=== PATIENT | male | born 1980 | race Caucasian/White ===

== ENCOUNTER 2016-04-30 15:05 | Observation (INO) | payer OTHER ==
[~2016-04-30] VITALS: Ht 188 cm; Wt 80.0 kg
[~2016-04-30 15:05] MED LIST: ALBUAER2 INH; ALPR1TAB3 PO; AMPH20TA2 PO; CLX20 PO; FLUT0.15 NAE
--- NOTE | 2016-04-30 15:47 | DIAGNOSTIC IMAGING REPORT ---
CHEST ONE VIEW PORTABLE CLINICAL HISTORY: Overdose COMPARISON STUDY: 10/28/2015 FINDINGS: The cardiac and mediastinal contours are normal. There is no evidence of focal pulmonary consolidation. There is no evidence of failure. No pleural effusions are visualized.[ IMPRESSION: No active disease in the chest. Electronically signed by: Yinka Patel M.D. 04/30/2016 3:45 PM Dictated Date/Time: 04/30/2016 3:44 PM
[2016-04-30 15:56] LABS: BASO % 0.1 %; BASO ABS # 0.01 K/uL (0-0.2); COMPLETE YES; EOS % 2.4 %; HEMATOCRIT 43.1 % (42-52); IG% 0.1 %; LYMPH % 21.6 %; LYMPH ABS # 1.78 K/uL (1.2-3.4); MEAN CELL VOLUME 92.7 fL (80-100); MEAN CORPUSCULAR HEMOGLOBIN 32.5 pg (25-34); MEAN PLATELET VOLUME 10.7 fL (7.4-10.4); MONO % 10.1 %; NEUT % 65.7 %; PLATELET COUNT 204 K/uL (130-400); RED BLOOD COUNT 4.65 M/uL (4.7-6.1); WHITE BLOOD COUNT 8.23 K/uL (4.8-10.8)
[2016-04-30 16:04] LABS: BUN/CREATININE RATIO 13.3 (10-20); CALCIUM 9.1 mg/dl (8.5-10.1); CREATININE 1.1 mg/dl (0.60-1.40); POTASSIUM 4.1 mmol/L (3.5-5.1)
[2016-04-30 16:05] LABS: PARTIAL THROMBOPLASTIN RATIO 1.2; PROTHROMBIN TIME (PATIENT) 10.7 SECONDS (9.0-12.0)
[2016-04-30 16:15] LABS: ALB/GLOB RATIO 1.1 (0.9-2); THYROID STIMULATING HORMONE 0.154 uIu/ml (0.300-4.500)
--- NOTE | 2016-04-30 16:38 | EMERGENCY ROOM VISIT NOTE ---
History Report prepared by Edin: Mónica Bland Under the Supervision of: Dr. Jong Galindo M.D. First contact with patient: 15:07 Chief Complaint: OVERDOSE (ACCIDENTAL) Stated Complaint: POSSIBLE HERION OVERDOSE History of Present Illness The patient is a 35 year old male who presents to the Emergency Room for evaluation if a possible overdose as his sister had difficulty waking him up just prior to arrival. Currently, patient denies being in any discomfort, and he has no complaints at this time. Patient states that he took 1 Lorazepam earlier today as prescribed for his history of anxiety, but he denies the use of other recreational drugs or alcohol. Patient states that he was just sleeping on his couch earlier today, but does not recall coming to the ED or why he was brought in for evaluation. He denies recent fevers, chills, chest pain, shortness of breath, abdominal pain, nausea, vomiting, diarrhea or urinary symptoms. Nurse states that she saw the patient while he was visiting his dad in the ED 2 weeks prior and was acting similarly during that time. Source of History: patient, nursing staff Onset: just prior to arrival Position: other (generalized) Symptom Intensity: no current pain Quality: other (difficult to arouse) Timing: other (current) Associated Symptoms: No SOB, No abdominal pain, No chest pain, No chills, No diarrhea, No fevers, No nausea, No urinary symptoms, No vomiting Review of Systems All systems have been listed, reviewed, and are negative other than those previously mentioned. Please see Additional Medical History Sheet. Past Medical & Surgical Medical Problems: (1) Anxiety Family History Patient reports no known family medical history. Social History Smoking Status: Never Smoker Alcohol Use: occasionally Drug Use: cocaine, heroin Marital Status: single Occupation Status: employed Current/Historical Medications Scheduled Amphetamine-Dextroamphetamine 20MG (Adderall 20MG), 20 MG PO BID Fluticasone Propionate (Nasal) (Flonase Allergy Relief), 1 SPRAY MARILYN DAILY Scheduled PRN Alprazolam (Xanax), 1 MG PO Q6H PRN for Anxiety Allergies Coded Allergies: No Known Allergies (Verified , 04/30/16) Physical Exam Vital Signs Date Time Temp Pulse Resp B/P Pulse Ox O2 Delivery O2 Flow Rate FiO2 04/30/16 16:21 69 14 123/68 99 Room Air 04/30/16 15:41 100 Room Air 04/30/16 15:10 36.3 84 17 113/69 98 Room Air Physical Exam GENERAL: Patient awake, alert, answers questions but somewhat slow. SKIN: Multiple tattoos. No erythema, pallor, cyanosis or rash HEENT: Normal head, pupils equal, reactive to light and accommodation. Scar on right TM, left is normal. Oral cavity and posterior pharynx appear normal. Neck: Without adenopathy, no neck vein distention. LUNGS: Clear to auscultation. No wheezes, no rales, no rhonchi. HEART: No murmurs. No gallops. No rubs ABDOMEN: No masses, no rebound, no hepatomegaly or splenomegaly. EXTREMITIES: No signs of trauma. No pedal or pretibial edema. No calf or thigh tenderness. NEUROLOGIC: Cranial nerves II-XII within normal limits. No gross motor sensory function deficits. Medical Decision & Procedures ER Provider Diagnostic Interpretation: X ray results are stated below per my interpretation and the radiologist's interpretation. CHEST ONE VIEW PORTABLE CLINICAL HISTORY: Overdose COMPARISON STUDY: 10/28/2015 FINDINGS: The cardiac and mediastinal contours are normal. There is no evidence of focal pulmonary consolidation. There is no evidence of failure. No pleural effusions are visualized.[ IMPRESSION: No active disease in the chest. Electronically signed by: Yinka Patel M.D. 04/30/2016 3:45 PM Dictated Date/Time: 04/30/2016 3:44 PM Laboratory Results 04/30/16 15:35 Red Blood Count 4.65, Mean Corpuscular Volume 92.7, Mean Corpuscular Hemoglobin 32.5, Mean Corpuscular Hemoglobin Concent 35.0, Mean Platelet Volume 10.7, Neutrophils (%) (Auto) 65.7, Lymphocytes (%) (Auto) 21.6, Monocytes (%) (Auto) 10.1, Eosinophils (%) (Auto) 2.4, Basophils (%) (Auto) 0.1, Neutrophils # (Auto ) 5.40, Lymphocytes # (Auto) 1.78, Monocytes # (Auto) 0.83, Eosinophils # (Auto ) 0.20, Basophils # (Auto) 0.01 04/30/16 15:35 Test 04/30/16 15:35 04/30/16 17:33 White Blood Count 8.23 K/uL (4.8-10.8) Red Blood Count 4.65 M/uL (4.7-6.1) Hemoglobin 15.1 g/dL (14.0-18.0) Hematocrit 43.1 % (42-52) Mean Corpuscular Volume 92.7 fL (80-100) Mean Corpuscular Hemoglobin 32.5 pg (25-34) Mean Corpuscular Hemoglobin Concent 35.0 g/dl (32-36) Platelet Count 204 K/uL (130-400) Mean Platelet Volume 10.7 fL (7.4-10.4) Neutrophils (%) (Auto) 65.7 % Lymphocytes (%) (Auto) 21.6 % Monocytes (%) (Auto) 10.1 % Eosinophils (%) (Auto) 2.4 % Basophils (%) (Auto) 0.1 % Neutrophils # (Auto) 5.40 K/uL (1.4-6.5) Lymphocytes # (Auto) 1.78 K/uL (1.2-3.4) Monocytes # (Auto) 0.83 K/uL (0.11-0.59) Eosinophils # (Auto) 0.20 K/uL (0-0.5) Basophils # (Auto) 0.01 K/uL (0-0.2) RDW Standard Deviation 42.8 fL (36.4-46.3) RDW Coefficient of Variation 12.8 % (11.5-14.5) Immature Granulocyte % (Auto) 0.1 % Immature Granulocyte # (Auto) 0.01 K/uL (0.00-0.02) Prothrombin Time 10.7 SECONDS (9.0-12.0) Prothromb Time International Ratio 1.0 (0.9-1.1) Activated Partial Thromboplast Time 30.7 SECONDS (21.0-31.0) Partial Thromboplastin Ratio 1.2 Anion Gap 9.0 mmol/L (3-11) Est Creatinine Clear Calc Drug Dose 109.0 ml/min Estimated GFR () 100.3 Estimated GFR (Non- 86.5 BUN/Creatinine Ratio 13.3 (10-20) Calcium Level 9.1 mg/dl (8.5-10.1) Total Bilirubin 0.7 mg/dl (0.2-1) Aspartate Amino Transf (AST/SGOT) 21 U/L (15-37) Alanine Aminotransferase (ALT/SGPT) 33 U/L (12-78) Alkaline Phosphatase 46 U/L (45-117) Total Protein 7.9 gm/dl (6.4-8.2) Albumin 4.2 gm/dl (3.4-5.0) Globulin 3.7 gm/dl (2.5-4.0) Albumin/Globulin Ratio 1.1 (0.9-2) Thyroid Stimulating Hormone (TSH) 0.154 uIu/ml (0.300-4.500) Ethyl Alcohol mg/dL < 3.0 mg/dl (0-3) Laboratory results as stated above per my review. Medications Administered Medications (Trade) Dose Ordered Sig/[place] Route Start Time Stop Time Status Last Admin Dose Admin Naloxone HCl (Narcan Inj) 0.4 mg STK-MED ONCE .ROUTE 04/30/16 16:44 04/30/16 16:45 DC 04/30/16 16:49 0.4 MG ECG Indication: toxicologic Rate (beats per minute): 68 Rhythm: normal sinus Findings: no acute ischemic change, no ectopy ED Course 1532: Past medical records reviewed. The patient was evaluated in room B10. A complete history and physical examination was performed. 1600: Psychiatric case management spoke with the patient's sister. She stated that the patient verbalized thoughts of wanting to kill himself. 1643: Upon reevaluation, patient was unarousable and his pupils were pinpoint. Narcan 0.4 mg Route was administered and patient awoke. The hospitalist will be contacted. 1710: After discussion with Dr. Pedraza, the patient will continue to be evaluated by the [facility] for further evaluation. Patient verbalized understanding and agreement with this treatment plan. Medical Decision Nurses notes reviewed. Medical history sheet reviewed. Differential diagnosis includes but is not limited to: drug overdose, arrhythmia, CVA, TIA, and metabolic disorder. The patient was evaluated multiple times. On his first examination he appeared rather sleepy. I reexamined him at 1700 and I could not arouse him. His pupils were pinpoint. He was given Narcan which did wake him up. According to the psych liaison nurse who spoke with the patient's sister, the patient has been despondent and was suicidal. The patient apparently has a history of drug abuse including heroin. Multiple labs, EKG and imaging were obtained. We are still awaiting results of the tox screen. His alcohol level is not elevated. The patient does not have any pulmonary pathology seen. The patient will require further observation and possibly more Narcan. I'm concerned that he has taken an overdose of heroin and possibly benzodiazepines. I'm also concerned that this may be intentional. The patient will require psychiatric evaluation while in the hospital. I discussed care with the hospitalist. Consults Time Called: 1700 Consulting Physician: Dr. Pedraza - [facility] Returned Call: 1705 Discussed the patient's case. He will continue to be evaluated by the [facility] hospitalist for further management. Impression Primary Impression: Multiple drug overdose Scribe Attestation The scribe's documentation has been prepared under my direction and personally reviewed by me in its entirety. I confirm that the note above accurately reflects all work, treatment, procedures, and medical decision making performed by me. Departure Information Dispostion Being Evaluated By Hospitalist ([facility]) Referrals No Doctor, Assigned (PCP)
[2016-04-30] MEDS ORDERED: NALOXONE HCL 0.4 MG/1 ML VIAL/CARP ONE (16:44)
[2016-04-30 17:55] LABS: URINE APPEARANCE CLEAR (CLEAR); URINE BILIRUBIN NEG (NEG); URINE COLOR YELLOW; URINE EPITHELIAL CELL AUTO 0-5 /lpf (0-5); URINE NITRITE NEG (NEG); URINE PH 5.5 (4.5-7.5); UROBILINOGEN NEG (NEG); ZZUR CULT IF INDIC CLEAN CATCH NO
[2016-04-30 17:56] LABS: MANUAL MICROSCOPIC REQUIRED? NO; REVIEW REQ? NO
[2016-04-30] MEDS ORDERED: POLYETHYLENE (MIRALAX) 17 GM PACK PO PRN (18:00)
[2016-04-30] MEDS ORDERED: ONDANSETRON INJ 2 MG/ML 2 ML VIAL IV PRN (18:00)
[2016-04-30] MEDS ORDERED: ACETAMINOPHEN 325 MG TAB PO PRN (18:00)
[2016-04-30] MEDS ORDERED: MAGNESIUM HYDROXIDE SUSP 30 ML UDC PO PRN (18:00)
[2016-04-30] MEDS ORDERED: ALUMINUM/MAGNESIUM/SIMETH (MAALOX MAX) 30 ML UDC PO PRN (18:00)
[2016-04-30 18:09] LABS: BENZODIAZEPINE, URINE POS (NEG); COCAINE,URINE NEG (NEG); PHENCYCLIDINE, URINE NEG (NEG)
[2016-04-30 20:13] VITALS: BP 118/64; PULSE 74; TEMP 36.5; O2SAT 100; Ht 188 cm; Wt 80.0 kg
--- NOTE | 2016-04-30 20:23 | History and Physical ---
History & Physical Date & Time of Service: Apr 30, 2016 at 20:03 Chief Complaint: Drug Overdose, Lethargy Primary Care Physician: No Doctor, Assigned History of Present Illness Source: patient, family (grandfather at bedside), clinic records, hospital records This is a 35 y/o male with a history of anxiety, ADD and drug abuse who presented to the ED on 04/30 with lethargy and unresponsiveness. As per nursing notes, the patient and his siblings were supposed to come to the hospital to sign paperwork. The patient's sister found him on the couch and had difficulty waking him up. He was minimally responsive, so she took him to the ED by private vehicle for a potential drug overdose. The patient does not remember coming here or why. He has a history of using cocaine years ago, as well as heroin "once or twice". He denies taking any drugs besides his prescribed medications, and he states he took his prescribed medications as directed. He denies drinking any alcohol lately. The patient's grandfather states that a similar episode occurred about 6 months ago, and the patient was taking drugs then, although the patient denies this. The grandfather also states that the patient has voiced thoughts of suicide without a specific plan to his family in recent months. The patient denies depression and suicidal thoughts/plans to me. The patient admits only to weakness and fatigue. Per the grandfather, the patient's father also had a history of drug and alcohol abuse. The patient denies fevers, chills, sweats, chest pain, palpitations, claudication, cough, wheezing, shortness of breath, nausea, vomiting, abdominal pain, dysuria, hematuria, urinary retention, paralysis, weakness, numbness and tingling. Past Medical/Surgical History Anxiety ADD H/o drug abuse Family History Celiac disease Diabetes mellitus Myocardial infarction Rheumatoid arthritis Social History Smoking Status: Current Every Day Smoker (3-4 cigarettes a day) Smokeless Tobacco Use: No Alcohol Use: none Drug Use: cocaine (h/o ), heroin (h/o ) Marital Status: single Housing status: lives with family (lives with father) Occupational Status: unemployed (recently released from [employer] 1 month ago) Multi-Drug Resistant Organisms History of MDRO: No Allergies Coded Allergies: No Known Allergies (Verified , 04/30/16) Home Medications Scheduled Amphetamine-Dextroamphetamine 20MG (Adderall 20MG), 20 MG PO BID Fluticasone Propionate (Nasal) (Flonase Allergy Relief), 1 SPRAY MARILYN DAILY Scheduled PRN Alprazolam (Xanax), 1 MG PO BID PRN for Anxiety Review of Systems Constitutional: + fatigue, + weakness, No chills, No fever, No sweats Eyes: No diplopia, No eye pain, No worsening of vision ENT: No hearing loss, No sore throat, No tinnitus Respiratory: No cough, No shortness of breath, No wheezing Cardiovascular: No chest pain, No edema, No palpitations Abdomen: No nausea, No pain, No vomiting Musculoskeletal: No calf pain, No joint pain, No muscle pain Genitourinary - Male: No dysuria, No hematuria, No urinary retention Neurologic: No numbness/tingling, No paralysis, No weakness Psychiatric: + anxiety, No depression symptoms, No substance abuse Integumentary: No color change, No itch, No rash Physical Exam Vital Signs Date Time Temp Pulse Resp B/P Pulse Ox O2 Delivery O2 Flow Rate FiO2 04/30/16 19:00 77 14 112/62 99 Room Air 04/30/16 18:09 81 14 119/69 99 Room Air 04/30/16 16:21 69 14 123/68 99 Room Air 04/30/16 15:41 100 Room Air 04/30/16 15:10 36.3 84 17 113/69 98 Room Air General Appearance: WD/WN, no apparent distress (lethargic, falls asleep every few seconds during history) Head: normocephalic, atraumatic Eyes: normal inspection, PERRL (pupils dilated), EOMI ENT: normal ENT inspection, hearing grossly normal, pharynx normal Neck: supple, no JVD, trachea midline Respiratory/Chest: lungs clear, normal breath sounds, no respiratory distress Cardiovascular: regular rate, rhythm, no gallop, no murmur Abdomen/GI: normal bowel sounds, non tender, soft Extremities/Musculoskelatal: normal inspection, no calf tenderness, no pedal edema Neurologic/Psych: normal mood/affect, oriented x 3, + pertinent finding ( lethargic/drowsy, keeps falling asleep during history/exam but is easily roused) Skin: normal color, warm/dry, no rash Diagnostics Laboratory Results Results Past 24 Hours Test 04/30/16 15:35 04/30/16 17:33 Range/Units White Blood Count 8.23 4.8-10.8 K/uL Red Blood Count 4.65 4.7-6.1 M/uL Hemoglobin 15.1 14.0-18.0 g/dL Hematocrit 43.1 42-52 % Mean Corpuscular Volume 92.7 80-100 fL Mean Corpuscular Hemoglobin 32.5 25-34 pg Mean Corpuscular Hemoglobin Concent 35.0 32-36 g/dl Platelet Count 204 130-400 K/uL Mean Platelet Volume 10.7 7.4-10.4 fL Neutrophils (%) (Auto) 65.7 % Lymphocytes (%) (Auto) 21.6 % Monocytes (%) (Auto) 10.1 % Eosinophils (%) (Auto) 2.4 % Basophils (%) (Auto) 0.1 % Neutrophils # (Auto) 5.40 1.4-6.5 K/uL Lymphocytes # (Auto) 1.78 1.2-3.4 K/uL Monocytes # (Auto) 0.83 0.11-0.59 K/uL Eosinophils # (Auto) 0.20 0-0.5 K/uL Basophils # (Auto) 0.01 0-0.2 K/uL RDW Standard Deviation 42.8 36.4-46.3 fL RDW Coefficient of Variation 12.8 11.5-14.5 % Immature Granulocyte % (Auto) 0.1 % Immature Granulocyte # (Auto) 0.01 0.00-0.02 K/uL Prothrombin Time 10.7 9.0-12.0 SECONDS Prothromb Time International Ratio 1.0 0.9-1.1 Activated Partial Thromboplast Time 30.7 21.0-31.0 SECONDS Partial Thromboplastin Ratio 1.2 Sodium Level 140 136-145 mmol/L Potassium Level 4.1 3.5-5.1 mmol/L Chloride Level 103 98-107 mmol/L Carbon Dioxide Level 28 21-32 mmol/L Anion Gap 9.0 3-11 mmol/L Blood Urea Nitrogen 15 7-18 mg/dl Creatinine 1.10 0.60-1.40 mg/dl Est Creatinine Clear Calc Drug Dose 109.0 ml/min Estimated GFR () 100.3 Estimated GFR (Non- 86.5 BUN/Creatinine Ratio 13.3 10-20 Random Glucose 81 70-99 mg/dl Calcium Level 9.1 8.5-10.1 mg/dl Total Bilirubin 0.7 0.2-1 mg/dl Aspartate Amino Transf (AST/SGOT) 21 15-37 U/L Alanine Aminotransferase (ALT/SGPT) 33 12-78 U/L Alkaline Phosphatase 46 45-117 U/L Total Protein 7.9 6.4-8.2 gm/dl Albumin 4.2 3.4-5.0 gm/dl Globulin 3.7 2.5-4.0 gm/dl Albumin/Globulin Ratio 1.1 0.9-2 Thyroid Stimulating Hormone (TSH) 0.154 0.300-4.500 uIu/ml Ethyl Alcohol mg/dL < 3.0 0-3 mg/dl Urine Color YELLOW Urine Appearance CLEAR CLEAR Urine pH 5.5 4.5-7.5 Urine Specific [place] 1.020 1.000-1.030 Urine Protein NEG NEG Urine Glucose (UA) NEG NEG Urine Ketones TRACE NEG Urine Occult Blood NEG NEG Urine Nitrite NEG NEG Urine Bilirubin NEG NEG Urine Urobilinogen NEG NEG Urine Leukocyte Esterase NEG NEG Urine WBC (Auto) 0 0-5 /hpf Urine RBC (Auto) 0-4 0-4 /hpf Urine Hyaline Casts (Auto) 0 0-5 /lpf Urine Epithelial Cells (Auto) 0-5 0-5 /lpf Urine Bacteria (Auto) NEG NEG Urine Opiates Screen POS NEG Urine Methadone, Qualitative NEG NEG Urine Barbiturates NEG NEG Urine Phencyclidine (PCP) Level NEG NEG Ur Amphetamine/Methamphetamine POS NEG MDMA (Ecstasy) Screen POS NEG Urine Benzodiazepines Screen POS NEG Urine Cocaine Metabolite NEG NEG Urine Marijuana (THC) NEG NEG Diagnostic Radiology Reviewed the following studies and agree with interpretation as follows: Patient Name: MEIR ROUSE Unit Number: [id number] Dictated: 04/30/161543 Transcribed: 04/30/161543 ARG Printed Date/Time: [~ rep prt dt]/[~ rep prt tm] [~ rep ct labl] - [~ rep ct ivnm] [facility] [place] [place] [address] Dictated: 04/30/161543 Transcribed: 01/09/17 1544 ARG Printed Date/Time: [~ rep prt dt]/[~ rep prt tm] [~ rep ct labl] - [~ rep ct ivnm] Patient: MEIR ROUSE Address1: [address] Rec: [id number] Address2: Acct ID: [id number] [facility] Zip: [place] [address] Date: 1980 Sex: M Room/Bed: Ref Phy: No Doctor, Assigned SC: [facility] Att Phy: Report #: [id number] Helga Phy: No Doctor, Assigned Test: CXR1P Admit Phy: Respiratory Support Technician: MILKA Interpreting Phy: Yinka Patel M.D. Diagnosis: POSSIBLE HERION OVERDOSE Ordering Phy: ED, PROTOCOL Service Date: 04/30/16 Admit Date: 04/30/16 MNE: [id number] CONF: DICTATED BY: Yinka Patel M.D.]] CC: ED,PROTOCOL No Doctor, Assigned Jong Galindo M.D. Endcc: [~ rep ct add3]] CHEST ONE VIEW PORTABLE CLINICAL HISTORY: Overdose COMPARISON STUDY: 10/28/2015 FINDINGS: The cardiac and mediastinal contours are normal. There is no evidence of focal pulmonary consolidation. There is no evidence of failure. No pleural effusions are visualized.[ IMPRESSION: No active disease in the chest. Electronically signed by: Yinka Patel M.D. 04/30/2016 3:45 PM Dictated Date/Time: 04/30/2016 3:44 PM The status of this report is Signed. Draft = Not yet reviewed or approved by Radiologist. Signed = Reviewed and approved by Radiologist. <AttendingPhy></AttendingPhy> <FamilyPhy>No Doctor, Assigned</FamilyPhy> < PrimaryPhy>No Doctor, Assigned</PrimaryPhy> <UnitNumber>[id number]</UnitNumber> <VisitNumber>[id number]</VisitNumber> <PatientName>MEIR ROUSE</ PatientName> <DateOfBirth>1980</DateOfBirth> <Location>[facility]</Location> < ServiceDate>04/30/16</ServiceDate> <MNE>ESINDI</MNE> <OrderingPhy>ED, PROTOCOL</ OrderingPhy> <OrderingPhyMNE>f rep ord dr castelan</OrderingPhyMNE> <DictatingPhyMNE> f rep dict dr castelan</DictatingPhyMNE> <CCListMNE>f rep ct mne</CCListMNE> < AdmittingPhyMNE>f pt admit dr castelan</AdmittingPhyMNE> <AttendingPhyMNE>f pt attend dr castelan</AttendingPhyMNE> <ConsultingPhyMNE>f pt consult dr castelan</ConsultingPhyMNE> <FamilyPhyMNE>f pt fam dr castelan</FamilyPhyMNE> <OtherPhyMNE>f pt other dr castelan</OtherPhyMNE> < PrimaryPhyMNE>f pt prim care dr castelan</PrimaryPhyMNE> <ReferringPhyMNE>f pt referring dr casetlan</ReferringPhyMNE> EKG Reviewed EKG and agree with interpretation as follows: 68 bpm, NSR Impression Assessment and Plan 35 y/o male with a history of anxiety, ADD and drug abuse who presented to the ED on 04/30 with lethargy and unresponsiveness. Pt has h/o drug abuse and presented with similar episode about 6 months ago. Pt denies any drug use in years and states he only takes his Adderall and Xanax as directed. Denies any depression and suicidal thoughts when asked, but according to family he has voiced thoughts of suicide more than once in the last few months. Pt. lethargic and he did become more difficult to awaken while in ED. Pupils pinpoint at that time. He was given Narcan 0.4 mg which did make him more alert. CXR no acute disease. EKG in NSR. VSS and labs grossly normal. Drug overdose, possibly intentional -Admit to telemetry for observation -UDS differentiation pending. Positive for opiates, amphetamines, ecstasy, and benzos. Pt. takes Adderall and Xanax. -Psych consulted for suicidal thoughts per family -One on one sitter -NPO for now due to lethargy, may eat when more alert -Repeat EKG in am and with chest pain Anxiety -Hold Xanax 1mg PO BID prn anxiety ADD -Hold Adderall 20 mg PO BID GI prophylaxis -Maalox Max 15 mL PO q4h prn dyspepsia -Milk of magnesia 30 mL PO q6h prn constipation -Miralax 17 gm PO qd prn constipation -Zofran 4 mg IV q6h prn nausea DVT prophylaxis -Enoxaparin 40 mg SC q24h -TOMMY hose and SCDs Code Status -Level I, FULL RESUSCITATION STATUS I agree with PA assessment and plan and have personally seen and examined pt. Pt admitted for intentional OD. Sister claims pt had suicidal ideations but pt does not agree to this. Pt lethargic on exam. Narcan given in ER. VSS. Awaiting tox screen. Psychiatry consulted. Pt has hx of polysubstance abuse. Level of Care Telemetry (observation) VTE Prophylaxis VTE Risk Assessment Done? Y/N: Yes Risk Level: High Given or contraindicated: Enoxaparin (Lovenox)SQ, SCD's
[2016-04-30] MEDS ORDERED: D5NSS + 20MEQ KCL 1,000 ML IV SCH (20:30)
[2016-04-30] MEDS: ENOXAPARIN 40 MG/0.4 ML SYR SC SCH (20:43)
[2016-04-30] MEDS ORDERED: IV FLUIDS COMPLETED PRN (21:30)
[2016-05-01] VITALS: BP 110/63; PULSE 57; TEMP 36.5; O2SAT 99
[2016-05-01 04:00] VITALS: BP 109/64; PULSE 55; TEMP 36.8; O2SAT 99
[2016-05-01 05:51] LABS: MEAN CELL VOLUME 93.1 fL (80-100); MEAN CORPUSCULAR HEMOGLOBIN 32.2 pg (25-34); MEAN CORPUSCULAR HGB CONC 34.6 g/dl (32-36); MEAN PLATELET VOLUME 10.9 fL (7.4-10.4); PLATELET COUNT 196 K/uL (130-400); RED BLOOD COUNT 4.94 M/uL (4.7-6.1); WHITE BLOOD COUNT 6.27 K/uL (4.8-10.8)
[2016-05-01 06:24] LABS: BUN/CREATININE RATIO 14.4 (10-20); CALCIUM 9.4 mg/dl (8.5-10.1)
[2016-05-01] MEDS ORDERED: INFLUENZA ADMINISTRATION CHARGE ONE (08:00)
[2016-05-01] MEDS ORDERED: INFLUENZA VIRUS QUAD VACCINE 0.5 ML SYR IM. ONE (08:00)
[2016-05-01 08:31] VITALS: BP 96/73; PULSE 62; TEMP 36.6; O2SAT 99
[2016-05-01 08:49] VITALS: BP 96/73; PULSE 62; TEMP 36.6; O2SAT 99
[2016-05-01 09:10] VITALS: BP 99/53; PULSE 66; TEMP 36.4; O2SAT 96
--- NOTE | 2016-05-01 12:40 | Progress Note ---
Subjective Subjective Date of Service: May 01, 2016. Pt evaluation today including: conversation w/ patient, physical exam, chart review, review of studies, review of inpatient medication list Notes: denies suicidal ideation, no firearms at home, no ideas to hurt others or self, feels better today Problem List Medical Problems: (1) Episode of unresponsiveness Status: Acute (2) Multiple drug overdose Status: Acute Review of Systems Constitutional: No fever ENT: No hearing loss Respiratory: No cough Abdomen: No pain Musculoskeletal: No joint pain Male : No dysuria Neurologic: No memory loss Psychiatric: No depression symptoms Endo: No fatigue Physical Exam Vital Signs Vital Signs Past 24 Hours: Date Time Temp Pulse Resp B/P Pulse Ox O2 Delivery O2 Flow Rate FiO2 05/01/16 09:10 36.4 66 16 99/53 96 Room Air 05/01/16 08:49 36.6 62 16 99 05/01/16 08:31 36.6 62 16 96/73 99 Room Air 05/01/16 08:00 Room Air 05/01/16 04:00 36.8 55 18 109/64 99 Room Air 05/01/16 04:00 99 Room Air 05/01/16 00:00 36.5 57 15 110/63 99 Room Air 05/01/16 00:00 99 Room Air 04/30/16 20:13 36.5 74 14 118/64 100 Room Air 04/30/16 19:00 77 14 112/62 99 Room Air 04/30/16 18:09 81 14 119/69 99 Room Air 04/30/16 16:21 69 14 123/68 99 Room Air 04/30/16 15:41 100 Room Air 04/30/16 15:10 36.3 84 17 113/69 98 Room Air Physical Exam: General Appearance: WD/WN, no apparent distress Eyes: bilateral eyes normal inspection ENT: hearing grossly normal, pharynx normal Neck: supple, no JVD Respiratory/Chest: chest non-tender, normal breath sounds Cardiovascular: regular rate, rhythm, no gallop Abdomen: normal bowel sounds, soft Extremities: non-tender, normal inspection Neurologic/Psychiatric: alert Skin: normal color Medications Medications: Current Inpatient Medications Medications (Trade) Dose Ordered Sig/Medina Route Start Time Stop Time Status Last Admin Dose Admin Enoxaparin Sodium (Lovenox Inj) 40 mg Q24H SC 04/30/16 21:00 05/30/16 20:59 04/30/16 20:43 40 MG Acetaminophen (Tylenol Tab) 650 mg Q4H PRN PO 04/30/16 18:00 05/30/16 17:59 Al Hydrox/Mg Hydrox/Simethicone (Maalox Max Susp) 15 ml Q4H PRN PO 04/30/16 18:00 05/30/16 17:59 Magnesium Hydroxide (Milk Of Magnesia Susp) 30 ml Q12H PRN PO 04/30/16 18:00 05/30/16 17:59 Ondansetron HCl (Zofran Inj) 4 mg Q6H PRN IV 04/30/16 18:00 05/30/16 17:59 Polyethylene (Miralax Powder Packet) 17 gm DAILY PRN PO 04/30/16 18:00 05/30/16 17:59 Miscellaneous (Iv Fluids Completed) 1 ea PRN PRN N/A 04/30/16 21:30 04/30/17 21:29 Laboratory Data Labs: Last 24 Hours Test 04/30/16 15:35 04/30/16 17:33 05/01/16 05:11 White Blood Count 8.23 K/uL 6.27 K/uL Red Blood Count 4.65 M/uL 4.94 M/uL Hemoglobin 15.1 g/dL 15.9 g/dL Hematocrit 43.1 % 46.0 % Mean Corpuscular Volume 92.7 fL 93.1 fL Mean Corpuscular Hemoglobin 32.5 pg 32.2 pg Mean Corpuscular Hemoglobin Concent 35.0 g/dl 34.6 g/dl Platelet Count 204 K/uL 196 K/uL Mean Platelet Volume 10.7 fL 10.9 fL Neutrophils (%) (Auto) 65.7 % Lymphocytes (%) (Auto) 21.6 % Monocytes (%) (Auto) 10.1 % Eosinophils (%) (Auto) 2.4 % Basophils (%) (Auto) 0.1 % Neutrophils # (Auto) 5.40 K/uL Lymphocytes # (Auto) 1.78 K/uL Monocytes # (Auto) 0.83 K/uL Eosinophils # (Auto) 0.20 K/uL Basophils # (Auto) 0.01 K/uL RDW Standard Deviation 42.8 fL 43.7 fL RDW Coefficient of Variation 12.8 % 12.9 % Immature Granulocyte % (Auto) 0.1 % Immature Granulocyte # (Auto) 0.01 K/uL Prothrombin Time 10.7 SECONDS Prothromb Time International Ratio 1.0 Activated Partial Thromboplast Time 30.7 SECONDS Partial Thromboplastin Ratio 1.2 Sodium Level 140 mmol/L 140 mmol/L Potassium Level 4.1 mmol/L 4.0 mmol/L Chloride Level 103 mmol/L 103 mmol/L Carbon Dioxide Level 28 mmol/L 29 mmol/L Anion Gap 9.0 mmol/L 8.0 mmol/L Blood Urea Nitrogen 15 mg/dl 14 mg/dl Creatinine 1.10 mg/dl 1.00 mg/dl Est Creatinine Clear Calc Drug Dose 109.0 ml/min 116.7 ml/min Estimated GFR () 100.3 112.5 Estimated GFR (Non- 86.5 97.1 BUN/Creatinine Ratio 13.3 14.4 Random Glucose 81 mg/dl 79 mg/dl Calcium Level 9.1 mg/dl 9.4 mg/dl Total Bilirubin 0.7 mg/dl Aspartate Amino Transf (AST/SGOT) 21 U/L Alanine Aminotransferase (ALT/SGPT) 33 U/L Alkaline Phosphatase 46 U/L Total Protein 7.9 gm/dl Albumin 4.2 gm/dl Globulin 3.7 gm/dl Albumin/Globulin Ratio 1.1 Thyroid Stimulating Hormone (TSH) 0.154 uIu/ml Ethyl Alcohol mg/dL < 3.0 mg/dl Urine Color YELLOW Urine Appearance CLEAR Urine pH 5.5 Urine Specific Advance 1.020 Urine Protein NEG Urine Glucose (UA) NEG Urine Ketones TRACE Urine Occult Blood NEG Urine Nitrite NEG Urine Bilirubin NEG Urine Urobilinogen NEG Urine Leukocyte Esterase NEG Urine WBC (Auto) 0 /hpf Urine RBC (Auto) 0-4 /hpf Urine Hyaline Casts (Auto) 0 /lpf Urine Epithelial Cells (Auto) 0-5 /lpf Urine Bacteria (Auto) NEG Urine Opiates Screen POS Urine Methadone, Qualitative NEG Urine Barbiturates NEG Urine Phencyclidine (PCP) Level NEG Ur Amphetamine/Methamphetamine POS MDMA (Ecstasy) Screen POS Urine Benzodiazepines Screen POS Urine Cocaine Metabolite NEG Urine Marijuana (THC) NEG Assessment and Plan 35 y/o male with a history of anxiety, ADD and drug abuse who presented to the ED on 04/30 with lethargy and unresponsiveness. Pt has h/o drug abuse and presented with similar episode about 6 months ago. Pt denies any drug use in years and states he only takes his Adderall and Xanax as directed. Denies any depression and suicidal thoughts when asked, but according to family he has voiced thoughts of suicide more than once in the last few months. Pt. lethargic and he did become more difficult to awaken while in ED. Pupils pinpoint at that time. He was given Narcan 0.4 mg which did make him more alert. CXR no acute disease. EKG in NSR. VSS and labs grossly normal. Drug overdose, possibly intentional UDS. Positive for opiates, amphetamines, ecstasy, and benzos. Pt. takes Adderall and Xanax. Psych consulted for suicidal thoughts per family, they will continue to follow him, patient continues to deny suicidal thoughts, they will make further treatment recommendations One on one sitter advanced diet Previous primary care physician was Dr. Cobb and had previously prescribed Celexa. Anxiety Hold Xanax 1mg PO BID prn anxiety ADHD Hold Adderall 20 mg PO BID DVT prophylaxis Enoxaparin 40 mg SC q24h TOMMY weinberg and SCDs Code Status FULL
--- NOTE | 2016-05-01 14:27 | CONSULTATION REPORT ---
DATE OF CONSULTATION: 05/01/2016 IDENTIFYING DATA: Frank Lynn is a 35-year-old gentleman who is address is in [place], [place], who is admitted to the hospital after being found by his sister obtunded and possibly overdosed. Information gathered from the patient, the patient's brother Deonte and the electronic medical record and all considered to be reliable. CHIEF COMPLAINT: "I don't remember." HISTORY OF PRESENT ILLNESS: Frank Lynn is a 35-year-old gentleman who was brought to the Emergency Room yesterday afternoon after his sister had difficulty waking him up just prior to arrival. The patient at that time said that he had taken 1 Lorazepam pill earlier and denied the use of other recreational drugs or alcohol. When the physician went to check on the patient the second time he was obtunded with pinpoint pupils that responded to Narcan. The patient's brother Deonte, sister Britney and mother Key Wong, were interviewed last night by the liaison nurse. They have extreme concerns that are relative intentionally overdosed in a suicide attempt. They reported that he has been severely depressed because his father, who is currently in the hospital, has been placed on hospice service. The sister and brother report that he has made suicidal statements to them. They also confirmed a history of drug and alcohol abuse. At the time I see the patient today, he is lying in his bed. He is minimally cooperative with the interview. He essentially says that he has mild depression and anxiety regarding his father's declining health, but denies that he is suicidal nor that he made a suicide attempt. He does not remember what transpired right before the hospitalization, with his last memory doing methamphetamines with 2 of his friends. He also admits to taking some opiate pills of an unspecified kind, but denies that he injected any heroin. He indicates that he has not slept for three nights prior to admission but then says he has only done methamphetamines once and that was the day of admission. He indicates that he is in treatment with his PCP, possibly Dr. Solitario, who provides Xanax and Adderall. He reports that he has occasional panic attacks some of which occur when he is not using stimulant medications. I had a phone conversation with his brother Deonte at phone number [phone]. Brother Deonte was very concerned that the patient will deny all symptoms. Deonte states that he has heard the patient specifically make suicidal statements about wanting to shoot himself, about not being able to handle their father's impending . Deonte confirms that the patient has a history of mental illness dating back many years. He has a history of a suicide attempt at least twice in the past, the last one in approximately 2011 when he was living in [place] with his brother Deonte. Apparently Deonte went to work and came home to find that the patient had cut his wrist and was bleeding out on the garage floor. The patient refused to go to the hospital at that time and so came to no medical or psychiatric attention. Deonte reports that his brother has long been unstable emotionally and has also long struggled with substance abuse. Deonte reports that his brother is done bath salts, heroin, marijuana and binge drinks on alcohol. Brother Deonte also reports that the patient is not allowed to return to his father's home where he had been living since he was discharged from skilled nursing in February. Apparently, the patient had been having parties or having disruptive behaviors and the landlord there will not allow him to return. CURRENT MEDICATIONS: Med history as reported by the reconciliation list. 1. Xanax 1 mg b.i.d. p.r.n. anxiety. 2. Adderall 20 mg p.o. b.i.d. 3. Flonase nasal spray 1 spray each nostril daily. PAST PSYCHIATRIC HISTORY: The patient denies that he currently sees any mental health professionals or that he has ever been hospitalized. He denies attempts but brother confirms he has made at least 2. PRIOR MEDICATIONS: Include 1. Celexa -- from Dr. Cobb. ACCESS TO GUNS: Denies. ALLERGIES: NKDA. PAST MEDICAL HISTORY: 1. Denies for personal history of obesity, diabetes, dyslipidemia, hypertension, or cardiovascular disease. 2. History of a head injury years ago but denies history for seizures. 3. Tobacco use/disorder -- smokes one-half pack cigarettes daily. FAMILY HISTORY: Positive for depression in brother and father. Alcoholism in father and brother. He denies family history for suicide. SUBSTANCE ABUSE HISTORY: The patient has not been honest about his use, although ultimately says that he was abusing methamphetamines prior to admission. He admits he will drink 4-5 drinks on a weekend. He also has abused opiates, marijuana and claims that the benzodiazepines are by prescription. He apparently has been in skilled nursing multiple times for drugs and theft, having most recently been released in February this year. According to the [facility] monitoring site which was queried, the patient has received prescriptions for Adderall from multiple providers in the [place] and [facility]. He received 3 prescriptions in February totaling 180 pills between 02/21/2016 and 03/09/2016. There are no prescriptions on the [facility] website for benzodiazepines or any from Dr. Solitario. PERSONAL HISTORY: The patient grew up locally. He is a high school graduate. He is currently unemployed and said that his family has been helping him financially. He denies that he is currently in a relationship, but does have children, ages 9 and 11, who live with their grandmother. He does endorse being a spiritual individual. As I said, his legal charges are extensive and he has spent as many as 4 years in skilled nursing with last having been discharged in February 2016. He previously denied any psychological trauma history. MENTAL STATUS EXAMINATION: This is a 35-year-old gentleman with short dark hair, lying on his left hand side in his second floor bed. He is lying with his eyes closed when I enter, but opens his eyes to verbal. He is minimally cooperative. He is minimizing all symptoms. Eye contact is minimal, but appropriate. Motor behavior is significant for restless, shaking of his legs. Speech is of normal rate, volume, and tone. Affect is flat. Mood is "a little depressed and anxious." Thought process is for the most part organized and goal directed. He denies thought disorder in the form of hallucinations or delusions. He denies thoughts, plans, or intent to harm himself or anybody else. Today, he is oriented, although thought that it was and not Saturday. His fund of knowledge appears to be intact. His intelligence is estimated to be average. His insight and judgment are impaired. VITAL SIGNS: Temperature 36.4, pulse 66, respirations 16, blood pressure 99/53, pulse ox 96% on room air. LABORATORIES: 1. CBC -- notable for MPV elevated at 10.9. 2. Chem profile -- within normal limits. 3. TSH -- low at 0.154. 4. Toxicology -- positive for opiates, amphetamines, methamphetamines, MDMA, benzodiazepines. 5. Urinalysis -- no evidence of infection. 6. Coag studies -- within normal limits. IMAGIN. Chest x-ray -- no active disease. REVIEW OF SYSTEMS: Positive for complaints of fatigue, and a little depression and anxiety. PHYSICAL EXAMINATION: As per Dr. Shane. IMPRESSION: A 35-year-old gentleman admitted to the hospital with concerns for intentional toxic ingestion in a suicide attempt. The patient is denying that he is suicidal or that he has made a suicide attempt, yet says he cannot remember anything after abusing methamphetamines with friends. He is clearly trying to minimize his symptoms and in the face of the brother saying so clearly that he has made suicidal statements and has a history of cutting his wrist several years ago, I think we must feel compelled to admit him psychiatrically in order to be sure that he is safe to be discharged. The family is undergoing a great deal of stress with their father in demise. At this point, the patient is not inclined to receive voluntary treatment, although we will revisit this one time prior to forwarding the 302 process. A 302 petitioner statement was completed by both the brother and the sister, although it was completed incorrectly and will not be accepted by the county as valid and so we will have the brother come back and to complete a valid 302 petitioner statement. He is not able to do this until 2 p.m. this afternoon. At that point we will complete the 302 process and recommend inpatient treatment. I have conveyed this to Dr. Silverman who is medically clearing him today. DIAGNOSES: 1. Depression, unspecified. Differential diagnosis include major depressive disorder, adjustment disorder, mood disorder secondary to substance abuse. 2. Polysubstance dependence (opiates, methamphetamines). PLAN: Has been reviewed with Dr. Mechelle Hernandez. 1. ? overdose -- in view of past history of serious suicide attempt and statements directly to brother that he wants to shoot himself, we will recommend inpatient treatment. At this point, the patient is not accepting that on a voluntary basis and so we will have brother rewrite an acceptable 302 petitioner statement and proceed with a 302 this afternoon. 2. The patient can be held by security until this process is completed and 1:1 attendant should remain at the bedside. Thank you for allowing us to participate in this man's care.
--- NOTE | 2016-05-01 17:14 | Discharge Instructions ---
Discharge Instructions Admission Reason for Admission: Drug Overdose, Lethargy Discharge Discharge Diagnosis / Problem: drug overdose, possible suicide attempt Discharge Goals Goal(s): Increase independence, Improve disease control, Diagnostic testing, Therapeutic intervention Activity Recommendations Activity Level: Up Ad Jaci Therapies: Physical Therapy, Occupational Therapy . Additional Information Patient informed of condition: Yes Advance Directives: Yes DNR: No [facility] Care[facility] Other [facility] Communicable Disease: No Prognosis: Stable Christiansen Catheter: No Current Hospital Diet Patient's current hospital diet: Regular Diet Discharge Diet Recommended Diet: Regular Diet Pending Studies Studies pending at discharge: no Physician Orders On Transfer POLST Discussion: Not Applicable Medical Emergencies . Who to Call and When: Medical Emergencies: If at any time you feel your situation is an emergency, please call 911 immediately. . Non-Emergent Contact Non-Emergency issues call your: Primary Care Provider Call Non-Emergent contact if: you have any medication questions . Past History Medical & Surgical History: (1) Drug overdose . "Provider Documentation" section prepared by Rojelio Shane. Core Measure Problem Core Measures: None
--- NOTE | 2016-05-01 17:20 | Discharge Summary ---
Discharge Summary Admission Date: Apr 30, 2016 at 18:24 Discharge Date: May 01, 2016 Discharge Disposition: Acute care mental health Principal Diagnosis: drug overdose, possible suicide thought Consultations: psych Medication Reconciliation Continued Medications: Alprazolam (Xanax) 1 Mg Tab 1 MG PO BID PRN for Anxiety, TAB Amphetamine-Dextroamphetamine 20MG (Adderall 20MG) 1 Tab Tab 20 MG PO BID, TAB Fluticasone Propionate (Nasal) (Flonase Allergy Relief) 50 Mcg/Act Spr 1 SPRAY MARILYN DAILY Discharge Exam Review of Systems: Constitutional: No chills ENT: No unusual epistaxis Respiratory: No sputum Abdomen: No nausea Musculoskeletal: No joint pain Neurologic: No memory loss Psychiatric: No depression symptoms Endocrine: No fatigue Integumentary: No rash Physical Exam: General Appearance: WD/WN, no apparent distress Eyes: normal inspection, EOMI ENT: hearing grossly normal, pharynx normal Neck: supple, no JVD Respiratory/Chest: lungs clear, normal breath sounds Cardiovascular: regular rate, rhythm, no JVD Abdomen / GI: non tender Extremities: normal inspection, normal capillary refill Neurologic/Psychiatric: no motor/sensory deficits, normal reflexes Skin: normal color, warm/dry Hospital Course 35 y/o male with a history of anxiety, ADD and drug abuse who presented to the ED on 04/30 with lethargy and unresponsiveness. Pt has h/o drug abuse and presented with similar episode about 6 months ago. Pt denies any drug use in years and states he only takes his Adderall and Xanax as directed. Denies any depression and suicidal thoughts when asked, but according to family he has voiced thoughts of suicide more than once in the last few months. Pt. lethargic and he did become more difficult to awaken while in ED. Pupils pinpoint at that time. He was given Narcan 0.4 mg which did make him more alert. CXR no acute disease. EKG in NSR. VSS and labs grossly normal. Drug overdose, possibly intentional UDS. Positive for opiates, amphetamines, ecstasy, and benzos. Pt. takes Adderall and Xanax. Psych consulted for suicidal thoughts per family, they will continue to follow him, patient continues to deny suicidal thoughts, they will make further treatment recommendations One on one sitter currently advanced diet and tolerated it Previous primary care physician was Dr. Cobb and had previously prescribed Celexa. Anxiety Held Xanax 1mg PO BID prn anxiety ADHD Held Adderall 20 mg PO BID I received a call from Magalie Rivas Psych liaison, who believes that based on his presentation with drug overdose, patient requires inpatient psych admission due to possible suicidal thoughts ideation that is suspected based on additional information provided by family members. Patient however denies suicidal ideation now. 302 filled out, patient is being discharged to inpatient psych facility. Total Time Spent: Greater than 30 minutes This includes examination of the patient, discharge planning, medication reconciliation, and communication with other providers. Discharge Instructions Please refer to the electronic Patient Visit Report (Discharge Instructions) for additional information.
[2016-05-01] MEDS: ENOXAPARIN 40 MG/0.4 ML SYR SC SCH (20:14)
[2016-05-02 04:53] VITALS: BP 99/53; PULSE 66; TEMP 36.4; O2SAT 96
[2016-05-06 00:33] LABS: COD UR NEGATIVE NG/ML (CUTOFF=50); HYDROCOD UR NEGATIVE NG/ML (CUTOFF=50); HYDROMOR UR NEGATIVE NG/ML (CUTOFF=50); HYDROXYETHYLFLURAZEPAM CONF NEGATIVE NG/ML (CUTOFF=50); HYDROXYMIDAZOLAM NEGATIVE NG/ML (CUTOFF=50); HYDROXYTRIAZOLAM CONF NEGATIVE NG/ML (CUTOFF=50); MORPHINE UR 2890 NG/ML (CUTOFF=50); NORHYDROCODONE CONF UR NEGATIVE NG/ML (CUTOFF=50); OXYMORPH UR NEGATIVE NG/ML (CUTOFF=50); TEMAZEPAM CONF NEGATIVE NG/ML (CUTOFF=50)
== END 2016-05-02 07:15 ==
LOC: ENRESERVTM → ENRESERVDT → EEVIPCON 15:07 → C.EDB 15:07 → C.MSICU 18:24 → C.MS2W 05-01 09:08
PROVIDERS: ADMIT Hospitalist; ATTEND Hospitalist
DX: T42.4X4A Poisoning by benzodiazepines, undetermined, initial encounter (principal); F15.10 Other stimulant abuse, uncomplicated; F16.10 Hallucinogen abuse, uncomplicated; F90.9 Attention-deficit hyperactivity disorder, unspecified type; F32.9 Major depressive disorder, single episode, unspecified; F17.210 Nicotine dependence, cigarettes, uncomplicated; Z83.3 Family history of diabetes mellitus; Z81.1 Family history of alcohol abuse and dependence; Z81.8 Family history of other mental and behavioral disorders; Z82.49 Family history of ischemic heart disease and other diseases of the circulatory system